=== PATIENT | female | born 1930 | race Caucasian/White ===

== ENCOUNTER 2017-03-09 09:19 | Inpatient (IN) | payer OTHER ==
[~2017-03-09] VITALS: Ht 188 cm; Wt 48.6 kg
[2017-03-09] MEDS ORDERED: AMPICILLIN/SULBACTAM 3 GM IM ONE (10:00)
[2017-03-09 10:41] LABS: HEMATOCRIT 44.7 % (34.6-47.8); WHITE BLOOD COUNT 13.3 x10^3/uL (3.4-10)
[2017-03-09 10:46] LABS: ASPARTATE AMINO TRANSFERASE 26 U/L (15-37); BLOOD UREA NITROGEN 22 mg/dL (7-18)
[2017-03-09] MEDS ORDERED: SODIUM CHLORIDE 0.9%, 500ML IVBOLUS ONE (11:00)
[2017-03-09] MEDS: AMPICILLIN/SULBACTAM 3 GM in SODIUM CHLORIDE 0.9% 100 ML IV SCH ×2 (11:02→17:52)
[2017-03-09] MEDS ORDERED: LISI-170 PO (11:56)
[2017-03-09] MEDS ORDERED: METO50TA82 PO (11:56)
[2017-03-09] MEDS ORDERED: SIMV10TA3 PO (11:56)
[2017-03-09] MEDS ORDERED: HYDROmorphone 1 MG/ML, 1ML ONE (12:00)
[2017-03-09] MEDS ORDERED: ONDANSETRON 2MG/ML, 2ML IVPush PRN (12:00)
[2017-03-09] MEDS ORDERED: HYDROmorphone 1 MG/ML, 1ML IV ONE (12:00)
[2017-03-09] MEDS ORDERED: ONDANSETRON 2MG/ML, 2ML ONE (12:01)
[2017-03-09] MEDS ORDERED: SODIUM CHLORIDE 0.9% 1,000 ML IV SCH (14:00)
[2017-03-09] MEDS: SODIUM CHLORIDE 0.9% 1,000 ML IV SCH (14:00)
[2017-03-09 19:05] VITALS: BP 140/69
[2017-03-09 20:17] VITALS: BP 144/55
[2017-03-09] MEDS ORDERED: ACETAMINOPHEN 325 MG TABLET PO PRN (21:30)
[2017-03-09] MEDS ORDERED: DOCUSATE 100 MG CAPSULE PO PRN (21:30)
[2017-03-09] MEDS ORDERED: ENALAPRILAT 1.25 MG/ML, 2ML IVPush PRN (21:30)
[2017-03-09] MEDS ORDERED: ASPI-621 PO (22:29)
[2017-03-09] MEDS: SIMVASTATIN 10 MG TABLET PO SCH (22:52)
[2017-03-10] MEDS: AMPICILLIN/SULBACTAM 3 GM in SODIUM CHLORIDE 0.9% 100 ML IV SCH ×4 (00:25→18:07)
[2017-03-10] MEDS: SODIUM CHLORIDE 0.9% 1,000 ML IV SCH ×6 (02:15→22:30)
[2017-03-10 08:05] VITALS: BP 135/70
[2017-03-10 08:18] LABS: BLOOD UREA NITROGEN 20 mg/dL (7-18)
[2017-03-10 08:25] LABS: HEMATOCRIT 38.6 % (34.6-47.8); HEMOGLOBIN 12.8 g/dL (11.7-16.4)
[2017-03-10] MEDS: ASPIRIN 81 MG TABLET CHEW PO SCH (09:00)
[2017-03-10] MEDS: METOPROLOL TARTRATE 50 MG TABLET PO SCH (09:00)
[2017-03-10] MEDS: LISINOPRIL 20 MG TABLET PO SCH (09:00)
[2017-03-10 15:48] VITALS: BP 146/67
[2017-03-10 20:39] VITALS: BP 143/63
[2017-03-10] MEDS: SIMVASTATIN 10 MG TABLET PO SCH (21:01)
[2017-03-11 02:52] VITALS: BP 150/62
[2017-03-11 05:13] LABS: HEMATOCRIT 38.3 % (34.6-47.8); HEMOGLOBIN 12.6 g/dL (11.7-16.4); WHITE BLOOD COUNT 8.1 x10^3/uL (3.4-10)
[2017-03-11 05:30] LABS: BLOOD UREA NITROGEN 19 mg/dL (7-18)
[2017-03-11] MEDS: AMPICILLIN/SULBACTAM 3 GM in SODIUM CHLORIDE 0.9% 100 ML IV SCH ×2 (06:00)
[2017-03-11 07:26] VITALS: BP 155/61
[2017-03-11] MEDS: METOPROLOL TARTRATE 50 MG TABLET PO SCH (09:43)
[2017-03-11] MEDS: LISINOPRIL 20 MG TABLET PO SCH (09:43)
[2017-03-11] MEDS: ASPIRIN 81 MG TABLET CHEW PO SCH (09:43)
[2017-03-11] MEDS ORDERED: CLIN300C8 PO (10:17)
[2017-03-11] MEDS ORDERED: LACT1CAP24 PO (10:17)
== END 2017-03-11 11:57 | disposition home or self-care (01) | DRG 155 ==
LOC: ED 11:05 → EDIP 12:33 → 4NOR 18:35 → DCLOUNGE 03-11 11:41
PROVIDERS: ADMIT Hospitalist; ATTEND Hospitalist
PROC: 0CC Mouth and Throat, Extirpation (ICD-10-PCS; principal; 2017-03-09)
DX: K11.5 Sialolithiasis (principal); E87.1 Hypo-osmolality and hyponatremia; I10 Essential (primary) hypertension; K11.21 Acute sialoadenitis; I16.0 Hypertensive urgency; E78.5 Hyperlipidemia, unspecified; D72.829 Elevated white blood cell count, unspecified
CPT/HCPCS: 36415; 70491; 80048; 80053; 83605; 85025; 87040; 96361; 96374; 96375; J0295; J1170; J2405; J7030; J7040